=== PATIENT | female | born 1995 ===

== ENCOUNTER 2018-05-04 10:46 | Emergency (ER) | payer OTHER ==
[2018-05-04 11:00] VITALS: BP 119/67
--- NOTE | 2018-05-04 11:02 | UC ---
Eye Complaint HPI - HPI Summary HPI Summary: woke up 2 days ago w/ L eye redness only. NO recent illness. Uses contacts that last Q2wks. Has not used them longer than supposed to, did not sleep in them. Nothing makes it better/worse - History of Current Complaint Chief Complaint: UCEye Stated Complaint: L EYE COMPLAINT Time Seen by Provider: 05/04/18 10:48 Hx Obtained From: Patient Hx Last Menstrual Period: 2 weeks ago Pain Intensity: 2 Pain Scale Used: 0-10 Numeric - Allergies/Home Medications Allergies/Adverse Reactions: Allergies Allergy/AdvReac Type Severity Reaction Status Date / Time No Known Allergies Allergy Verified 05/04/18 11:00 Home Medications: Home Medications Control 05/04/18 [History] PMH/Surg Hx/FS Hx/Imm Hx - Additional Past Medical History Additional PMH: hx of R corneal ulceration Previously Healthy: Yes - Surgical History Surgical History: None - Family History Known Family History: Positive: None - Social History Alcohol Use: Occasionally Substance Use Type: None Smoking Status (MU): Never Smoked Tobacco Review of Systems All Other Systems Reviewed And Are Negative: Yes Constitutional: Positive: Negative Skin: Positive: Negative Eyes: Positive: Drainage - tearing up L eye, Eye Redness - L eye. Negative: Blurred Vision, Diplopia Physical Exam Triage Information Reviewed: Yes Appearance: Well-Appearing Vital Signs: Initial Vital Signs Temp 98.2 F 05/04/18 10:56 Pulse 76 05/04/18 10:56 Resp 15 05/04/18 10:56 BP 119/67 05/04/18 10:56 Pulse Ox 98 05/04/18 10:56 Vital Signs Reviewed: Yes Eyes: Positive: Conjunctiva Inflamed - L, Discharge - watering L eye, Other: - NO pain w/ EOM, NL EOM, no lid involvement. Cornea clear of abrasion. No cobbling of conj. Eye Complaint Course/Dx - Course Course Of Treatment: Painless, afebrile, no itching in L eye. No signs of abrasion. Started 2 days ago. Likely allergen vs. dry eyes but have asked her to see opthal. - Differential Dx/Diagnosis Differential Diagnosis/HQI/PQRI: Corneal Abrasion, Hyphema, Keratitis, Uveitis Provider Diagnosis: Hyperemia of eye Discharge - Sign-Out/Discharge Documenting (check all that apply): Patient Departure All imaging exams completed and their final reports reviewed: No Studies - Discharge Plan Condition: Good Disposition: HOME Prescriptions: Artificial Tear OPHTH.OINT* [Lacrilube OINT*] 1 applic LEFT EYE BEDTIME 7 Days # 1 ophth.oint Patient Education Materials: Eye Lubricant (Into the eye) Referrals: Roger Baker MD [Medical Doctor] - 2 Days (L red eye, painless, nonpruritic in a pt. that wears contacts as prescribed. No pain with EOMs, floaters, flashes or change in visual acuity.No abrasions or ulcerations seen on exam but does have hx of corneal ulceration in R eye.) Additional Instructions: please follow up with your eye doctor in 1-2 days. - Billing Disposition and Condition Condition: GOOD Disposition: Home
[2018-05-04] MEDS ORDERED: Fluorescein Sodium TOPICAL* 1 MG TEST STRIP OPHTHALMIC ONE (11:10)
[2018-05-04] MEDS ORDERED: Tetracaine 0.5% OPTH.SOL 4 ML* 1 DROP BTL LEFT EYE ONE (11:13)
== END 2018-05-04 12:04 | disposition home or self-care (01) ==
LOC: UCEAST 10:46
DX: H11.432 Conjunctival hyperemia, left eye (principal)
CPT/HCPCS: 99212; A9270-GY; G0463